=== PATIENT | female | born 1990 | race Two or more races ===

== ENCOUNTER 2023-12-05 12:03 | Emergency (ER) | payer MEDICAID, OTHER ==
[~2023-12-05] VITALS: Ht 167.6 cm; Wt 151.9 kg
[2023-12-05 12:52] LABS: Basophils # (auto) 0 10 ^3/uL (0-0.2); Basophils % (auto) 0.4 % (0.0-2.0); Eosinophils # (auto) 0.1 10 ^3/uL (0-0.8); Eosinophils % (auto) 1.1 % (0.0-7.0); Hematocrit 47.2 % (36.0-46.0); Hemoglobin 15.6 g/dL (12.2-16.2); Lymphocytes # (auto) 1.5 10 ^3/uL (0.4-5.4); Lymphocytes % (auto) 23.1 % (10.0-50.0); Mean Corpuscular Hemoglobin 29.5 pg (28.0-32.0); Mean Corpuscular Volume 89.1 fL (80.0-100.0); Monocytes # (auto) 0.5 10 ^3/uL (0-1.3); Neutrophils # (auto) 4.4 10 ^3/uL (1.6-8.6); Neutrophils % (auto) 68.4 % (37.0-80.0); Nucleated Red Blood Cells % 0.1 %; Platelet Count (auto) 196 10^3/uL (140-450); Red Cell Distribution Width 14.9 % (11.8-14.3); White Blood Cell 6.5 10^3/uL (4.4-10.8)
[2023-12-05 13:06] LABS: Chloride 106 mmol/L (98-107); Potassium 4.3 mmol/L (3.5-5.1); Sodium 141 mmol/L (136-145)
[2023-12-05 13:07] LABS: Anion Gap 7 (5-15); Carbon Dioxide 28 mmol/L (20-31)
[2023-12-05 13:08] LABS: Calcium 9.3 mg/dL (8.7-10.4)
[2023-12-05 13:12] LABS: Glucose 270 mg/dL (74-106)
[2023-12-05 13:13] LABS: Blood Urea Nitrogen 12 mg/dL (9-23)
[2023-12-05 19:55] VITALS: BP 180/99; PULSE 95; RESP 20; O2SAT 98
== END 2023-12-05 20:04 | disposition home or self-care (01) ==
LOC: ER 12:03
DX: R10.2 Pelvic and perineal pain (principal); I10 Essential (primary) hypertension; M79.661 Pain in right lower leg; Z79.01 Long term (current) use of anticoagulants
CPT/HCPCS: 36415; 76856; 80048; 84702; 85025; 93971

== ENCOUNTER 2025-01-09 20:34 | Emergency (ER) | payer MEDICAID ==
[~2025-01-09] VITALS: Ht 167.6 cm; Wt 133.4 kg
[2025-01-09] MEDS: VANCOMYCIN 1GM/250ML KIT 250 ML IV ONE (01:00)
--- NOTE | 2025-01-09 20:57 | ED.PDOC ---
History of Present Illness HPI Comments 34 year old female with PMHx HTN, DM presents to the ED via EMS with a chief compliant of syncopal episode onset today (01/09/25). Per EMS, patient was getting up, felt chest pressure, experienced a syncopal episode witnessed by daughter, she called 911. Upon EMS arrival, patient was awake and responsive, BG was 374. She states she was recently discharged from a hospital, was admitted due to abscess surgery, was discharged about 6 days ago. Upon ED arrival, BG was 437. Patient states she does not recall events, states she was going to get up, felt chest pressure, does not recall from there. Denies head injury, fall, nausea, vomiting, diarrhea, shortness of breath, dizziness, blurred vision, dysuria, hematuria, numbness/tingling. No other symptoms or modifying factors present at this time. 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 Hx Family History Family History: Reviewed,noncontributory to illness Social History Smoker: Non-Smoker Alcohol: Denies ETOH Use Drugs: Denies Drug Use Lives In: Home Constitutional: denies: chills, diaphoresis, fatigue, fever, malaise, sweats, weakness, others EENTM: denies: blurred vision, double vision, ear bleeding, ear discharge, ear drainage, ear pain, ear ringing, eye pain, eye redness, hearing loss, mouth pain, mouth swelling, nasal discharge, nose bleeding, nose congestion, nose pain, photophobia, tearing, throat pain, throat swelling, voice changes, others Respiratory: denies: cough, hemoptysis, orthopnea, SOB at rest, shortness of breath, SOB with excertion, stridor, wheezing, others Cardiovascular: reports: syncope, others (chest pressure); denies: chest pain, dizzy spells, diaphoresis, Dyspnea on exertion, edema, irregular heart beat, left arm pain, lightheadedness, palpitations, PND Gastrointestinal: denies: abdomen distended, abdominal pain, blood streaked bowels, constipated, diarrhea, dysphagia, difficulty swallowing, hematemesis, melena, nausea, poor appetite, poor fluid intake, rectal bleeding, rectal pain, vomiting, others Genitourinary: denies: abnormal vagina bleeding, burning, dyspareunia, dysuria, flank pain, frequency, hematuria, incontinence, pain, , vagina discharge, urgency, others Neurological: denies: dizziness, fainting, headache, left sided numbness, left sided weakness, numbness, paresthesia, pre-existing deficit, right sided numbness, right sided weakness, seizure, speech problems, tingling, tremors, weakness, others Musculoskeletal: denies: back pain, gout, joint pain, joint swelling, muscle pain, muscle stiffness, neck pain, others Integumetry: denies: bruises, change in color, change in hair/nails, dryness, laceration, lesions, lumps, rash, wounds, others Allergic/Immunocompromised: denies: Difficulty Healing, Frequent Infections, Hives, Itching, others Hematologic/Lymphatic: denies: anemia, blood clots, easy bleeding, easy bruising, swollen glands, others Endocrine: reports: others (hyperglycemia); denies: excessive hunger, excessive sweating, excessive thirst, excessive urination, flushing, intolerance to cold, intolerance to heat, unexplained weight gain, unexplained weight loss Psychiatric: denies: anxiety, bipolar disorder, depression, hopeless, panic disorder, schizophrenia, sleepless, suicidal, others All Other Systems: Reviewed and Negative Physical Exam General Appearance: Normal HEENT: Normal ENT Inspection, Pharynx Normal, TMs Normal Neck: Full Range of Motion, Non-Tender, Normal, Normal Inspection Respiratory: Chest Non-Tender, Lungs Clear, No Accessory Muscle Use, No Respiratory Distress, Normal Breath Sounds Cardiovascular: No Edema, No JVD, No Murmur, No Gallop, Normal Peripheral Pulses, Regular Rate/Rhythm Breast Exam: Deferred Gastrointestinal: No Organomegaly, Non Tender, No Pulsatile Mass, Normal Bowel Sounds, Soft Genitalia: Deferred Pelvic: Deferred Rectal: Deferred Extremities: No calf tenderness, Normal capillary refill, Normal inspection, Normal range of motion, Non-tender, No pedal edema Musculoskeletal : Apperance: Normal Neurologic: Alert, fringing machine operator II-XII nml as Tested, No Motor Deficits, Normal Affect, Normal Mood, No Sensory Deficits Cerebellar Function: Normal Reflexes: Normal Skin: Dry, Normal Color, Warm Lymphatic: No Adenopathy Was a procedure done? Was a procedure done?: No Differential Dx Considerations may include: DDX incluides but not limited to: abscess, cellulitis, sepsis, dehydration, cardiac arrythmia, stroke and others X-Ray, Labs, Meds, VS Vital Signs Date Time Temp Pulse Resp B/P (MAP) Pulse Ox O2 Delivery O2 Flow Rate FiO2 01/09/25 21:02 76 01/09/25 20:43 97.9 83 27 208/140 97 97.9 Lab Test 01/09/25 22:07 01/09/25 21:13 Range/Units Troponin I High Sensitivity Pending 4 </=34 ng/L White Blood Count 8.1 4.4-10.8 10^3/uL Red Blood Count 4.88 4.0-5.20 10^6/uL Hemoglobin 14.7 12.2-16.2 g/dL Hematocrit 42.7 36.0-46.0 % Mean Corpuscular Volume 87.5 80.0-100.0 fL Mean Corpuscular Hemoglobin 30.0 28.0-32.0 pg Mean Corpuscular Hemoglobin Concent 34.3 32.0-36.0 g/dL Red Cell Distribution Width 16.8 H 11.8-14.3 % Platelet Count 251 140-450 10^3/uL Mean Platelet Volume 8.2 6.9-10.8 fL Neutrophils (%) (Auto) 74.9 37.0-80.0 % Lymphocytes (%) (Auto) 17.5 10.0-50.0 % Monocytes (%) (Auto) 6.8 0.0-12.0 % Eosinophils (%) (Auto) 0.5 0.0-7.0 % Basophils (%) (Auto) 0.3 0.0-2.0 % Neutrophils # (Auto) 6.1 1.6-8.6 10 ^3/uL Lymphocytes # (Auto) 1.4 0.4-5.4 10 ^3/uL Monocytes # (Auto) 0.5 0-1.3 10 ^3/uL Eosinophils # (Auto) 0 0-0.8 10 ^3/uL Basophils # (Auto) 0 0-0.2 10 ^3/uL Nucleated Red Blood Cells 0.1 % Sodium Level 139 136-145 mmol/L Potassium Level 3.7 3.5-5.1 mmol/L Chloride Level 102 98-107 mmol/L Carbon Dioxide Level 25 20-31 mmol/L Anion Gap 12 5-15 Blood Urea Nitrogen 13 9-23 mg/dL Creatinine 0.62 0.550-1.02 mg/dL Glomerular Filtration Rate Calc 118 >90 mL/min BUN/Creatinine Ratio 21.0 H 10.0-20.0 Serum Glucose 358 H 74-106 mg/dL Lactic Acid Level 2.5 *H 0.4-2.0 mmol/L Calcium Level 9.0 8.7-10.4 mg/dL Magnesium Level 2.2 1.6-2.6 mg/dL Total Bilirubin 1.1 H 0.2-1.0 mg/dL Aspartate Amino Transferase (AST) 14 13-40 U/L Alanine Aminotransferase (ALT) 31 7-40 U/L Alkaline Phosphatase 101 46-116 U/L Total Protein 6.9 5.7-8.2 g/dL Albumin 4.2 3.2-4.8 g/dL Time of 1ST Reevaluation: 21:20 Reevaluation 1ST: Unchanged Patient Education/Counseling: Diagnosis, Treatment, Need For Follow Up Family Education/Counseling: No Family Present SEPSIS Sepsis Screen Date sepsis recognized/suspect: Jan 09, 2025 Time Sepsis recognized/suspect: 2049 Recent Procedure: No On Antibiotic Therapy: No Respiratory Rate >20: No Heart Rate >90: No Temp<36 C (96.8 F) or >38.3 C: No SBP <90 or MAP <65 mmHG: No New Acute Mental Status Change: No Is the patient on CPAP, BIPAP,: No Physician Orders Troponin-I Hs (01/10/25 00:00) Troponin-I Hs (01/10/25 03:00) Troponin-I Hs (01/10/25 06:00) Urinalysis (01/09/25 20:52) Blood Culture (01/09/25 20:52) Development And Housing Director (01/09/25 20:52) Troponin-I Hs (01/09/25 23:52) NS (01/09/25 22:30) Zosyn Extended Infusion (01/09/25 22:30) Vancomycin (01/09/25 22:30) Insulin R (Human) (Insulin R) (01/09/25 22:30) Vital Signs Date Time Temp Pulse Resp B/P (MAP) Pulse Ox O2 Delivery O2 Flow Rate FiO2 01/09/25 21:02 76 01/09/25 20:43 97.9 83 27 208/140 97 97.9 Laboratory Tests Test 01/09/25 21:13 Lactic Acid Level 2.5 mmol/L (0.4-2.0) *H White Blood Count 8.1 10^3/uL (4.4-10.8) Departure 1 Departure Time of Disposition: 22:21 Impression: Primary Impression: Uncontrolled diabetes mellitus with hyperglycemia Additional Impressions: Cellulitis, abdominal wall Syncopal seizure Syncope Disposition: ADMITTED INPATIENT Admit to: Med Surg Condition: Guarded Discharged With: Self Comments 34 yo female with h/o DM and recent abscess / cellulitis in abd wall / left groin now had syncope at home. On lab review blood glucose is quite high. Her lactic acid is elevated. Patient was given IV fluids and insulin and IV abx. Patient will need to be admitted for supportive care and further workup. Critical Care Note Critical Care Time?: Yes (35 min-critical care time only) Critical care comment: Total critical care time: Approximately 36 minutes Due to a high probability of clinically significant, life threatening deterioration, the patient required my highest level of preparedness to intervene emergently and I personally spent this critical care time directly and personally managing the patient. This critical care time included obtaining a history; examining the patient; pulse oximetry; ordering and review of studies; arranging urgent treatment with development of a management plan; evaluation of patient's response to treatment; frequent reassessment; and, discussions with other providers. This critical care time was performed to assess and manage the high probability of imminent, life-threatening deterioration that could result in multi-organ failure. It was exclusive of separately billable procedures and treating other patients. Stability Stability form required: No Heart Score Heart Score: Heart Score Response (Comments) Value History N/A 0 EKG N/A 0 Age N/A 0 Risk Factors N/A 0 Troponin N/A 0 Total 0 I personally scribed for CLAUDIA CARLTON MD ([email or web address]) on 01/09/25 at 20:57. Electronically submitted by Tonya Cruz ([email or web address]). CLAUDIA CARLTON MD Jan 09, 2025 20:57
--- NOTE | 2025-01-09 21:11 | ECG ---
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
[2025-01-09 21:30] VITALS: O2SAT 99
[2025-01-09 21:48] LABS: Hematocrit 42.7 % (36.0-46.0); Hemoglobin 14.7 g/dL (12.2-16.2); Mean Corpuscular Hemoglobin 30.0 pg (28.0-32.0); Mean Corpuscular Volume 87.5 fL (80.0-100.0); Nucleated Red Blood Cells % 0.1 %
[2025-01-09 22:05] LABS: Alanine Aminotransferase 31 U/L (7-40); Albumin 4.2 g/dL (3.2-4.8); Alkaline Phosphatase 101 U/L (46-116); Anion Gap 12 (5-15); BUN/Creatinine Ratio 21.0 (10.0-20.0); Blood Urea Nitrogen 13 mg/dL (9-23); Calcium 9.0 mg/dL (8.7-10.4); Carbon Dioxide 25 mmol/L (20-31); Chloride 102 mmol/L (98-107); Magnesium 2.2 mg/dL (1.6-2.6); Potassium 3.7 mmol/L (3.5-5.1); Sodium 139 mmol/L (136-145); Total Protein 6.9 g/dL (5.7-8.2)
[2025-01-09 22:06] LABS: Bilirubin, Total 1.1 mg/dL (0.2-1.0)
[2025-01-09 22:10] LABS: Glucose 358 mg/dL (74-106)
[2025-01-09 22:14] LABS: Lactic Acid w/Reflex 2.5 mmol/L (0.4-2.0)
[2025-01-09] MEDS: SODIUM CHLORIDE 0.9% 1,000 ML IV ONE (22:52)
[2025-01-09] MEDS: PIPERACILLIN-TAZOB 3.375GM 100 ML IV ONE (22:53)
[2025-01-09] MEDS: InsuLIN REG 1unit/0.01ml Soln (100units/ml) SC ONE (22:56)
--- NOTE | 2025-01-10 01:13 | DVHHPRES ---
History of Present Illness Resident Creating Document: AZALIA GANDHI History of Present Illness Patient is a 34-year-old male with past medical history of HTN and T2DM, presented to [facility] ED with complaint of syncopal episode that occurred earlier today (01/09/25). This morning, the patient attempted to change her left groin wound dressing while lying down and was attempting to get up when she experienced chest pressure followed by a syncopal episode, witnessed by her daughter who subsequently called 911. She denies any associated head trauma, fall, nausea, vomiting, diarrhea, shortness of breath, dizziness, blurred vision, dysuria, hematuria, or numbness/tingling. The patient reports she was recently discharged from [facility] approximately 6 days ago, following surgical management of an abscess on 12/24/24 and 12/26/24. Upon EMS arrival, the patient was awake and responsive; initial blood glucose was 374 mg/dL. Upon arrival to the ED, her blood glucose was noted to be 437 mg/dL. On evaluation in the ED, patient is afebrile, blood pressure is 208/140 mmHg. Initial labs show serum glucose 358 and lactic acid 2.5. The patient was started on insulin drip, IV antibiotics and IV fluids. Patient is admitted for further evaluation and management. Cardiovascular: HTN Endocrine: Diabetes Past Surgical History: None Family History: None Smoke: No ALCOHOL: none Drugs: None Review of Systems Review of Systems Constitutional: Syncope, dizziness Eyes: No Pain, No Vision change, No Conjunctivae inflammation, No Eyelid inflammation, No Other, No Redness ENT: No Ear pain, No Ear discharge, No Nose pain, No Nose discharge, No Nose congestion, No Mouth pain, No Mouth swelling, No Throat pain, No Throat swelling, No Other Cardiovascular: No Chest Pain, No Palpitations, No Orthopnea, No Paroxysmal No Dyspnea, No Edema, No Lt Headedness, No Other Respiratory: No Cough, No Dry, No Shortness of breath, No SOB with exertion, No Wheezing, No Hemoptysis, No Pleuritic Pain, No Sputum, No Other Gastrointestinal: No Nausea, No Vomiting, No Abdominal Pain, No Diarrhea, No Constipation, No Melena, No Hematochezia, No Other Genitourinary: No Dysuria, No Frequency, No Incontinence, No Hematuria, No Retention, No Other Musculoskeletal: No other, No neck pain, No shoulder pain, No arm pain, No back pain, No hand pain, No leg pain, No foot pain Skin: No Rash, No Lesions, No Jaundice, No Bruising, No Other. Left groin wound. Allergies: Coded Allergies: NO KNOWN ALLERGIES (Unverified , 12/05/23) Exam Vital Signs Vital Signs Date Time Temp Pulse Resp B/P (MAP) Pulse Ox O2 Delivery O2 Flow Rate FiO2 01/09/25 21:30 99 Room Air* 0 21 01/09/25 21:30 98.2 80 18 130/80 (97) 98.2 Exam General Appearance: Cooperative. Well developed. Well nourished. NAD Head Exam: Normal inspection Neck Exam: Normal inspection. Non-tender. Normal alignment Pulmonary/Respiratory: Chest non-tender. Clear bilateral breath sounds, no crackles, no wheezing. Cardiovascular/Chest: Regular rate and rhythm. No murmurs. No JVD. Peripheral Pulses: 2+ Radial (R). 2+ Radial (L). 2+ Pedal (R). 2+ Pedal (L) Abdominal Exam: Normal bowel sounds. Soft. normal abdomen, no visible veins, Nontender. No hepatospenomegaly. No masses Ankle Exam: Negative ankle edema Lower extremities: Negative lower extremity edema Left groin: Healing surgical site noted, status post abscess removal and drainage with gauze dressing. Left groin tenderness with bleeding and drainage. Neuro/Mental Status: A&O x4. Coherent. Thoughts/Psych: Normal thought pattern. Appropriate mood and affect. Good judgement and insight Skin Exam: Normal inspection. Normal color. Warm. Dry Labs/Xrays Labs Test 01/09/25 23:15 01/09/25 22:07 01/09/25 21:13 Range/Units Lactic Acid Level 2.0 0.4-2.0 mmol/L Troponin I High Sensitivity 4 </=34 ng/L White Blood Count 8.1 4.4-10.8 10^3/uL Red Blood Count 4.88 4.0-5.20 10^6/uL Hemoglobin 14.7 12.2-16.2 g/dL Hematocrit 42.7 36.0-46.0 % Mean Corpuscular Volume 87.5 80.0-100.0 fL Mean Corpuscular Hemoglobin 30.0 28.0-32.0 pg Mean Corpuscular Hemoglobin Concent 34.3 32.0-36.0 g/dL Red Cell Distribution Width 16.8 H 11.8-14.3 % Platelet Count 251 140-450 10^3/uL Mean Platelet Volume 8.2 6.9-10.8 fL Neutrophils (%) (Auto) 74.9 37.0-80.0 % Lymphocytes (%) (Auto) 17.5 10.0-50.0 % Monocytes (%) (Auto) 6.8 0.0-12.0 % Eosinophils (%) (Auto) 0.5 0.0-7.0 % Basophils (%) (Auto) 0.3 0.0-2.0 % Neutrophils # (Auto) 6.1 1.6-8.6 10 ^3/uL Lymphocytes # (Auto) 1.4 0.4-5.4 10 ^3/uL Monocytes # (Auto) 0.5 0-1.3 10 ^3/uL Eosinophils # (Auto) 0 0-0.8 10 ^3/uL Basophils # (Auto) 0 0-0.2 10 ^3/uL Nucleated Red Blood Cells 0.1 % Sodium Level 139 136-145 mmol/L Potassium Level 3.7 3.5-5.1 mmol/L Chloride Level 102 98-107 mmol/L Carbon Dioxide Level 25 20-31 mmol/L Anion Gap 12 5-15 Blood Urea Nitrogen 13 9-23 mg/dL Creatinine 0.62 0.550-1.02 mg/dL Glomerular Filtration Rate Calc 118 >90 mL/min BUN/Creatinine Ratio 21.0 H 10.0-20.0 Serum Glucose 358 H 74-106 mg/dL Calcium Level 9.0 8.7-10.4 mg/dL Magnesium Level 2.2 1.6-2.6 mg/dL Total Bilirubin 1.1 H 0.2-1.0 mg/dL Aspartate Amino Transferase (AST) 14 13-40 U/L Alanine Aminotransferase (ALT) 31 7-40 U/L Alkaline Phosphatase 101 46-116 U/L Total Protein 6.9 5.7-8.2 g/dL Albumin 4.2 3.2-4.8 g/dL SEPSIS Sepsis Screen Date sepsis recognized/suspect: Jan 09, 2025 Time Sepsis recognized/suspect: 2049 Recent Procedure: No On Antibiotic Therapy: No Respiratory Rate >20: No Heart Rate >90: No Temp<36 C (96.8 F) or >38.3 C: No SBP <90 or MAP <65 mmHG: No New Acute Mental Status Change: No Is the patient on CPAP, BIPAP,: No Physician Orders Urinalysis (01/09/25 20:52) Blood Culture (01/09/25 20:52) Steam Hoist Operator (01/09/25 20:52) Vital Signs Date Time Temp Pulse Resp B/P (MAP) Pulse Ox O2 Delivery O2 Flow Rate FiO2 01/09/25 21:30 99 Room Air* 0 21 01/09/25 21:30 98.2 80 18 130/80 (97) 99 98.2 01/09/25 21:02 76 01/09/25 20:43 97.9 83 27 208/140 97 97.9 Laboratory Tests Test 01/09/25 21:13 01/09/25 23:15 Lactic Acid Level 2.5 mmol/L (0.4-2.0) *H 2.0 mmol/L (0.4-2.0) White Blood Count 8.1 10^3/uL (4.4-10.8) Medications Medications Dose Ordered Sig/Arron Route Start Time Stop Time Status Last Admin Dose Admin Insulin Human Regular 5 units ONCE ONCE SC 01/09/25 22:30 01/09/25 22:31 DC 01/09/25 22:56 5 UNITS Piperacillin Sod/ Tazobactam Sod 100 ml @ 100 mls/hr ONCE ONCE IV 01/09/25 22:30 01/09/25 23:29 DC 01/09/25 22:53 100 MLS/HR Sodium Chloride 1,000 ml @ 1,000 mls/hr Q1H ONCE IV 01/09/25 22:30 01/09/25 23:29 DC 01/09/25 22:52 1,000 MLS/HR Assessment/Plan Assessment/Plan Hyperosmolar hyperglycemic state Type 2 diabetes mellitus with hyperglycemia, uncontrolled Insulin lantus 20 units sc hs Moderate Insulin SS iq4h Zofran 4 MG IV q4h IV NS 120 MLS/HR ONE A1C Left groin abscess s/p abscess removal (12/24/24, 12/26/24) CT Pelvis with constrast Wound consult Wound culture Cefepime 1 GM IV q8h Vancomycin IV per pharmacy pain management with Dilaudid 0.25 MG IV q4h Syncope, unclear etiology r/u other causes Chest X-ray Echocardiogram Head CT Unknown autoimmune disease JORGE L on Eliquis 5 mg Hypertension Lisinopril 20 MG PO bid Diet: Cardiac DVT prophylaxis: Lovenox 40mg Goals of care: Full code, discussed for >30 minutes on 01/10/25 Plan discussed with patient Plan discussed with Dr. Flores Plan discussed with: Patient Date of Service: Jan 10, 2025 Billing Provider: RADHA FLORES MD Common Visit Codes: 47844-[id number] INP/OBS CARE (HIGH) Secondary Visit Codes: [id number] CARE PLAN 30 MINUTES AZALIA GANDHI RESIDENT Jan 10, 2025 01:13
[2025-01-10] MEDS ORDERED: ONDANSETRON HCL 4 MG/2 ML VIAL IV PRN (01:15)
[2025-01-10] MEDS ORDERED: VANCOMYCIN PER PHARMACY 0 MG IV SCH (01:15)
[2025-01-10] MEDS ORDERED: HYDROmorphone HCL 2 MG/ML VL/or syr IV PRN (01:15)
[2025-01-10] MEDS ORDERED: DEXTROSE (50%) 50ML SYRG IV PRN (01:15)
[2025-01-10] MEDS: SODIUM CHLORIDE 0.9% 1,000 ML IV ONE ×2 (02:00)
[2025-01-10 02:18] LABS: Beta HCG, Quantitative 0.6 mIU/mL (1.5-4.2)
[2025-01-10 02:19] LABS: Thyroid Stimulating Hormone 0.85 uIU/mL (0.55-4.78)
[2025-01-10] MEDS: IOHEXOL 300 MG/ML 100ML BOTTLE IJ ONE (02:29)
--- NOTE | 2025-01-10 02:37 | DVH ---
CHEST RADIOGRAPH Indication: chest pain Technique: Single frontal view of the chest was obtained COMPARISON: None FINDINGS: Lines and Tubes: None Lungs: Clear Pleura: No effusion. No pneumothorax. Cardiomediastinal contours: Unremarkable Bones: Unremarkable IMPRESSION: 1. No acute disease.
[2025-01-10] MEDS: INSULIN LANTUS (GLARGINE) 1 /0.01ml (100units/ml) SC ONE (02:49)
--- NOTE | 2025-01-10 02:53 | DVH ---
EXAM: CT HEAD WITHOUT CONTRAST INDICATION: SYNCOPE TECHNIQUE: CT of the head without intravenous contrast. Radiation Dose : 1. Head: CT Dose: CTDI volume is 53.62 mGy. Dose-length product is 1075.87 mGy*cm The dose indicators for CT are the volume Computed Tomography (CT) Dose Index (CTDIvol) and the Dose Length Product (DLP), and are measured in units of mGy and mGy-cm, respectively. These indicators are not patient dose, but values generated from the CT scanner acquisition factors. The report includes radiation exposure data for exposures received during this examination. COMPARISON: None FINDINGS: There is no evidence of acute intracranial hemorrhage, extra-axial collection, mass effect, midline shift, herniation or hydrocephalus. The ventricles, sulci and cisterns are age appropriate. The corrigan-white differentiation is intact. The visualized paranasal sinuses and mastoid air cells are clear. The surrounding soft tissues and osseous structures are unremarkable. IMPRESSION: 1. No acute intracranial abnormality. Radiation optimization: All CT scans at this facility use at least one of these dose optimization techniques: automated exposure control mA and/or kV adjustment per patient size (includes targeted exams where dose is matched to clinical indication) or iterative reconstruction.
--- NOTE | 2025-01-10 03:03 | DVH ---
History: LEFT GROIN ABSCESS Comparison Study: US PELVIC on DOS: 12/05/23 Technique: Multidetector spiral CT of the pelvis was performed from iliac crests to pubic symphysis. 100 cc of intravenous contrast was administered during this examination. Portal venous imaging was obtained. Axial, coronal and sagittal multiplanar reformats were performed by the technologist on a separate workstation. Radiation Dose : CT Dose: CTDI volume is mGy. Dose-length product is mGy*cm Findings: Visualized bowel: Small bowel and colon are normal in caliber and distribution. The appendix is normal. Ascites: Absent Lymphadenopathy: No pelvic or mesenteric lymphadenopathy. Pelvis Wall and Mesentery: Unremarkable. Vasculature: The visualized abdominal aorta is normal in size and caliber. Abdominal and pelvic vessels demonstrate normal enhancement. Pelvic Organs: 2.3 cm left adnexal cystic structure near water attenuation.. Intrauterine device. Musculoskeletal: Left inguinal soft tissue irregularity with skin thickening and increased soft tissue attenuation within the subcutaneous fat, suggestive of sequelae of cellulitis. No organized drainable fluid collection to suggest abscess. Packing material and dressing present. No aggressive focal bony lesions, acute fractures or dislocation. Bladder: Unremarkable IMPRESSION: 1. Left inguinal soft tissue irregularity with skin thickening and increased soft tissue attenuation within the subcutaneous fat, suggestive of sequelae of cellulitis without organized drainable fluid collection to suggest abscess. 2. Probable left ovarian cyst.
[2025-01-10] MEDS ORDERED: ACCU-CHEK COMFORT CURVE STRIP VI SCH (04:00)
[2025-01-10] MEDS ORDERED: InsuLIN REG 1unit/0.01ml Soln (100units/ml) SC SCH (04:00)
[2025-01-10 04:17] LABS: Alanine Aminotransferase 27 U/L (7-40); Albumin 3.7 g/dL (3.2-4.8); Alkaline Phosphatase 76 U/L (46-116); Anion Gap 10 (5-15); BUN/Creatinine Ratio 22.2 (10.0-20.0); Bilirubin, Total 1.1 mg/dL (0.2-1.0); Blood Urea Nitrogen 10 mg/dL (9-23); Carbon Dioxide 26 mmol/L (20-31); Chloride 104 mmol/L (98-107); Magnesium 2.0 mg/dL (1.6-2.6); Sodium 140 mmol/L (136-145); Total Protein 6.1 g/dL (5.7-8.2)
[2025-01-10 04:21] LABS: Hematocrit 40.2 % (36.0-46.0); Hemoglobin 13.6 g/dL (12.2-16.2); Mean Corpuscular Hemoglobin 30.1 pg (28.0-32.0); Mean Corpuscular Volume 88.7 fL (80.0-100.0); Nucleated Red Blood Cells % 0.1 %
[2025-01-10 04:24] LABS: Calcium 8.4 mg/dL (8.7-10.4); Glucose 242 mg/dL (74-106); Potassium 3.2 mmol/L (3.5-5.1)
[2025-01-10] MEDS: POTASSIUM CHL 20 Meq TABLET PO ONE (05:00)
[2025-01-10 05:31] VITALS: BP 139/80; PULSE 67; RESP 11; O2SAT 98
[2025-01-10] MEDS ORDERED: CEFEPIME 1GM/50ML 50 ML IV SCH (06:00)
[2025-01-10] MEDS ORDERED: ENOXAPARIN SOD 40 MG/0.4 ML SYRINGE SC SCH (10:00)
[2025-01-10] MEDS ORDERED: LISINOPRIL 20 MG TAB PO SCH (10:00)
[2025-01-10] MEDS ORDERED: INSULIN LANTUS (GLARGINE) 1 /0.01ml (100units/ml) SC SCH (22:00)
== END 2025-01-10 05:36 | disposition short-term general hospital (02) ==
LOC: EDBD 20:34 → ER 20:34 → UNDOADMIN 01-10 01:13 → OVERFLOW 01-10 01:13 → ER 01-10 05:36
DX: E11.65 Type 2 diabetes mellitus with hyperglycemia (principal); L03.311 Cellulitis of abdominal wall; R55 Syncope and collapse; Z79.899 Other long term (current) drug therapy
CPT/HCPCS: 36415; 70450; 71045; 72193; 80053; 82010; 82947; 83036; 83605; 83735; 83930; 84443; 84484; 84702; 85025; 85652; 86038; 86141; 87040; 93005; 96361; 96365; 96367; 96372; 99285; J1815; J2543; J3373; J7030; Q9967; 82962; 99291